=== PATIENT | male | born 1945 | race Caucasian/White ===

== ENCOUNTER → 2020-12-17 | Day surgery (SDC) | payer MEDICARE ==
[~2020-12-17] VITALS: Ht 180.3 cm; Wt 93.0 kg
[~2020-12-17] MED LIST: CALCIUM CARBON500 MG PO; FISH OIL 1,0001 EAC3 PO; L-ARGININE500 M1 PO; LISINOPRIL40 MG PO; NEURIVA ORIGIN1 EACH PO; NORVASC5 MG PO; OSTEO BI-FLEX1 EAC2 PO; PEPCID AC20 MG PO; SAW PALMETTO160 MG PO; VITAMIN B-121000 MC1 PO; VITAMIN B-650 MG PO; ZYRTEC10 M3 PO
[2020-12-17 07:28] LABS: HCT 42.5 % (42.0-52.0); HGB 14.7 g/dl (13.2-18.0); MCH 31.7 pg (25.0-31.0); MCHC 34.6 g/dL (32.0-36.0); MCV 91.6 fL (78.0-100.0); MPV 9.8 fL (6.0-9.5); RBC 4.64 M/uL (4.70-6.00); RDW 13.4 % (11.5-14.0); WBC 5.7 K/uL (4.0-10.5)
[2020-12-17 08:02] LABS: ALBUMIN 3.9 g/dL (3.4-5.0); BUN/CREAT RATIO (CALC) 10.9 RATIO; CREATININE 1.19 mg/dL (0.67-1.17); GLOBULIN (CALCULATION) 3.6 g/dL; TOTAL PROTEIN 7.5 g/dL (6.4-8.2)
== END | disposition home or self-care (01) ==
LOC: FAS 06:52
PROVIDERS: Surgery
DX: Z12.11 Encounter for screening for malignant neoplasm of colon (principal); I10 Essential (primary) hypertension; Z86.010 Personal history of colon polyps; Z79.82 Long term (current) use of aspirin; Z79.899 Other long term (current) drug therapy
CPT/HCPCS: 36415; 80053; J2704; J7120